=== PATIENT | male | born 1970 | race African-American/Black ===

== ENCOUNTER 2021-01-22 05:56 | Emergency (ER) | payer OTHER ==
[~2021-01-22] VITALS: Ht 177.8 cm; Wt 114.0 kg
[2021-01-22 07:00] LABS: CHLORIDE 110 mEq/L (98-107)
[2021-01-22 09:07] LABS: EOSINOPHILS % 1.7 % (0.0-5.0); HEMATOCRIT. 39.2 % (42.0-52.0); HEMOGLOBIN. 13.4 g/dL (14.0-18.0); LYMPHOCYTES % 25.8 % (20.0-50.0); MEAN CORPUSCULAR HEMOGLOBIN 33.4 pg (28.0-32.0); MEAN CORPUSCULAR VOLUME 98.2 fL (80.0-94.0); MEAN PLATELET VOLUME 9.3 fl (7.4-10.4); MONOCYTES % 8.1 % (2.0-8.0); NEUTROPHILS % 63.4 % (40.0-76.0); PLATELET 176 x1000/uL (130-400); RED BLOOD CELL COUNT 3.99 mill/uL (4.7-6.1); RED CELL DISTRIBUTION WIDTH 15.5 % (11.6-14.6)
[2021-01-22 10:16] VITALS: BP 142/99
[2021-01-22] MEDS ORDERED: AZIT250T12 MT (10:30)
[2021-01-22] MEDS ORDERED: IOHEXOL-350 100 ML BOTTLE ONE (10:40)
== END 2021-01-22 12:18 | disposition home or self-care (01) ==
LOC: ER 05:56
DX: J18.9 Pneumonia, unspecified organism (principal); Z20.822 Contact with and (suspected) exposure to COVID-19; R79.1 Abnormal coagulation profile; R79.89 Other specified abnormal findings of blood chemistry; R03.0 Elevated blood-pressure reading, without diagnosis of hypertension
CPT/HCPCS: 36415; 71045; 71275; 80053; 83880; 84484; 85025; 85379; 93005; 99285; C9803; Q9967; U0003; U0005